=== PATIENT | female | born 1945 | race African-American/Black ===

== ENCOUNTER → 2016-08-17 | Day surgery (SDC) | payer MEDICARE, MEDICAID ==
[~2016-08-17] VITALS: Ht 170.2 cm; Wt 81.6 kg
[~2016-08-17] MED LIST: ACETAMINOPHEN 325MG TABLET PO PRN; AMLO5TAB88 PO; AZIL80TA PO; DULA0.75 SQ; EZET10TA PO; FENTANYL CITRATE/PF 50MCG/ML 2ML VIAL ONE; HEPARIN SODIUM 1,000 UNIT/1ML VIAL IV ONE; IOHEXOL-300 100 ML BOTTLE ONE; LIDOCAINE HCL 1% 20ML VIAL (Pyxis) INJ ONE; MIDAZOLAM HCL 2 MG/2 ML VIAL ONE; NICARDIPINE 100MCG/ML 10ML VIAL (CATH LAB) IV ONE; NITROGLYCERIN 50MCG/ML 10ML VIAL (CATH LAB) IV ONE; OMEP40CA34 PO; RANO500T3 PO; ROSU20TA28 PO
[2016-08-17 13:38] VITALS: BP 106/41
== END | disposition home or self-care (01) ==
LOC: CCL 08:23 → 3WST 08:24 → UNDOADMOB 08:24 → INTOOBSV 08:24 → 3WST 17:40 → L&D 17:40 → ORIP 18:00 → L&D 18:00 → ORIP 18:03
PROVIDERS: ATTEND Specialist
DX: I25.10 Atherosclerotic heart disease of native coronary artery without angina pectoris (principal)
CPT/HCPCS: 82962; 93458; C1769; C1893; J1644; J2250; J3010; J3490; Q9967

== ENCOUNTER 2022-06-29 10:42 | Inpatient (IN) | payer MEDICARE, MEDICAID ==
[~2022-06-29] VITALS: Ht 170.2 cm; Wt 70.3 kg
[~2022-06-29 10:42] MED LIST changes: -ACETAMINOPHEN 325MG TABLET PO PRN; -EZET10TA PO; +EZET10TA13 PO; -FENTANYL CITRATE/PF 50MCG/ML 2ML VIAL ONE; -HEPARIN SODIUM 1,000 UNIT/1ML VIAL IV ONE; -IOHEXOL-300 100 ML BOTTLE ONE; -LIDOCAINE HCL 1% 20ML VIAL (Pyxis) INJ ONE; -MIDAZOLAM HCL 2 MG/2 ML VIAL ONE; -NICARDIPINE 100MCG/ML 10ML VIAL (CATH LAB) IV ONE; -NITROGLYCERIN 50MCG/ML 10ML VIAL (CATH LAB) IV ONE; +OMEP40CA20 PO; -OMEP40CA34 PO; -ROSU20TA28 PO; +ROSU20TA29 PO
[2022-06-29] MEDS ORDERED: NITROGLYCERIN 0.4MG TABLET SL SL PRN (11:30)
[2022-06-29] MEDS ORDERED: FUROSEMIDE 40MG/4ML VIAL IV ONE (11:30)
[2022-06-29 11:43] LABS: BASOPHILS % 0.4 % (0.0-2.0); EOSINOPHILS % 0.6 % (0.0-5.0); HEMATOCRIT. 34.5 % (36.0-48.0); LYMPHOCYTES % 25.3 % (20.0-50.0); MEAN CORPUSCULAR HEMOGLOBIN 23.3 pg (28.0-32.0); MEAN CORPUSCULAR VOLUME 73.3 fL (81.0-99.0); MEAN PLATELET VOLUME 8.8 fl (7.4-10.4); MONOCYTES % 7.5 % (2.0-8.0); NEUTROPHILS % 66.2 % (40.0-76.0); PLATELET 218 x1000/uL (130-400); RED BLOOD CELL COUNT 4.71 mill/uL (4.2-5.4); RED CELL DISTRIBUTION WIDTH 14.6 % (11.6-14.6)
[2022-06-29 11:53] LABS: CHLORIDE 109 mEq/L (98-107)
[2022-06-29] MEDS ORDERED: POTASSIUM CHLORIDE 20MEQ TABLET SR PO SCH (13:30)
[2022-06-29 14:22] LABS: INR 1.2; PROTHROMBIN TIME 12.7 sec (9.6-11.0)
[2022-06-29] MEDS ORDERED: MAGNESIUM/ALUMINUM HYDROXIDE/SIMETHICONE 30ML UDC PO PRN (15:15)
[2022-06-29] MEDS ORDERED: HYDROCODONE/ACETAMINOPHEN 5/325MG TABLET PO PRN (15:15)
[2022-06-29] MEDS ORDERED: IPRATROPIUM/ALBUTEROL 0.5-3(2.5)MG/3ML NEB NEB PRN (15:15)
[2022-06-29] MEDS ORDERED: DOCUSATE SODIUM 100MG CAPSULE PO PRN (15:15)
[2022-06-29] MEDS ORDERED: ACETAMINOPHEN 325MG TABLET PO PRN ×2 (15:15)
[2022-06-29] MEDS ORDERED: GUAIFENESIN 200MG/10ML SUGAR FREE UDC PO PRN (15:15)
[2022-06-29] MEDS ORDERED: CLONIDINE 0.1MG TABLET PO PRN (15:15)
[2022-06-29] MEDS ORDERED: NALOXONE HCL 0.4MG/ML VIAL IV PRN (15:30)
[2022-06-29 17:00] VITALS: BP 123/78
[2022-06-29] MEDS ORDERED: ALBUTEROL (0.083%) 2.5MG/3ML NEB HHN PRN (17:30)
[2022-06-29] MEDS ORDERED: IPRATROPIUM BROMIDE (0.02%) 0.5MG/2.5ML NEB HHN PRN (17:30)
[2022-06-29] MEDS: POTASSIUM CHLORIDE 20MEQ TABLET SR PO SCH (17:49)
[2022-06-29] MEDS: FUROSEMIDE 40MG/4ML VIAL IVP SCH (17:49)
[2022-06-29] MEDS ORDERED: IPRATROPIUM/ALBUTEROL 0.5-3(2.5)MG/3ML NEB HHN SCH (18:00)
[2022-06-29 18:07] VITALS: BP 123/78
[2022-06-29 20:00] VITALS: BP 108/68
[2022-06-29] MEDS ORDERED: AMLODIPINE 2.5MG TABLET PO SCH (21:00)
[2022-06-30] VITALS: BP 104/63
[2022-06-30 04:00] VITALS: BP 108/66
[2022-06-30 06:49] LABS: BASOPHILS % 0.3 % (0.0-2.0); HEMATOCRIT. 34.2 % (36.0-48.0); MEAN CORPUSCULAR HEMOGLOBIN 23.4 pg (28.0-32.0); MEAN CORPUSCULAR VOLUME 72.8 fL (81.0-99.0); MEAN PLATELET VOLUME 9.1 fl (7.4-10.4); MONOCYTES % 7.9 % (2.0-8.0); NEUTROPHILS % 62.8 % (40.0-76.0); PLATELET 198 x1000/uL (130-400); RED CELL DISTRIBUTION WIDTH 14.2 % (11.6-14.6)
[2022-06-30 06:55] LABS: CHLORIDE 111 mEq/L (98-107)
[2022-06-30] MEDS: OMEPRAZOLE 20MG CAPSULE EXTENDED RELEASE PO SCH (07:26)
[2022-06-30 08:00] VITALS: BP 110/78
[2022-06-30 12:30] VITALS: BP 116/74
[2022-06-30] MEDS: AMLODIPINE 2.5MG TABLET PO SCH (13:03)
[2022-06-30] MEDS: SPIRONOLACTONE 25MG TABLET PO SCH (13:03)
[2022-06-30] MEDS: POTASSIUM CHLORIDE 20MEQ TABLET SR PO SCH ×2 (13:03→16:54)
[2022-06-30] MEDS: FUROSEMIDE 40MG/4ML VIAL IVP SCH ×2 (13:04→16:53)
[2022-06-30] MEDS: ALLOPURINOL 100 MG TABLET PO SCH (13:04)
[2022-06-30 16:00] VITALS: BP 100/70
[2022-06-30] MEDS ORDERED: LOPERAMIDE HCL 2MG CAPSULE PO PRN (19:45)
[2022-06-30 20:00] VITALS: BP 96/55
[2022-07-01] VITALS: BP 102/68
[2022-07-01 04:00] VITALS: BP 101/63
[2022-07-01 06:08] LABS: BASOPHILS % 0.5 % (0.0-2.0); EOSINOPHILS % 1.1 % (0.0-5.0); HEMOGLOBIN. 11.9 g/dL (12.0-16.0); LYMPHOCYTES % 31.2 % (20.0-50.0); MEAN CORPUSCULAR HEMOGLOBIN 23.3 pg (28.0-32.0); MEAN CORPUSCULAR VOLUME 72.2 fL (81.0-99.0); MEAN PLATELET VOLUME 9.5 fl (7.4-10.4); MONOCYTES % 7.9 % (2.0-8.0); NEUTROPHILS % 59.3 % (40.0-76.0); PLATELET 214 x1000/uL (130-400); RED BLOOD CELL COUNT 5.13 mill/uL (4.2-5.4); RED CELL DISTRIBUTION WIDTH 14.5 % (11.6-14.6)
[2022-07-01] MEDS: OMEPRAZOLE 20MG CAPSULE EXTENDED RELEASE PO SCH (06:51)
[2022-07-01 08:00] VITALS: BP 95/62
[2022-07-01] MEDS: POTASSIUM CHLORIDE 20MEQ TABLET SR PO SCH ×2 (08:26→16:17)
[2022-07-01] MEDS: AMLODIPINE 2.5MG TABLET PO SCH (08:26)
[2022-07-01] MEDS: FUROSEMIDE 40MG/4ML VIAL IVP SCH ×2 (08:26→16:17)
[2022-07-01] MEDS: ALLOPURINOL 100 MG TABLET PO SCH (08:26)
[2022-07-01 12:00] VITALS: BP 102/61
[2022-07-01] MEDS: SPIRONOLACTONE 25MG TABLET PO SCH (13:59)
[2022-07-01 16:00] VITALS: BP 96/60
[2022-07-01] MEDS: SILDENAFIL CITRATE 20MG TABLET PO SCH ×2 (16:17→22:00)
[2022-07-01] MEDS ORDERED: LOPERAMIDE HCL 2MG CAPSULE PO PRN (17:00)
[2022-07-01] MEDS: CHOLESTYRAMINE/SUCROSE 4G POWDER PACKET PO SCH (18:10)
[2022-07-01 20:51] VITALS: BP 92/50
[2022-07-02] VITALS (7 sets, daily range): BP systolic 96–107; BP diastolic 53–60
[2022-07-02] MEDS: IPRATROPIUM BROMIDE (0.02%) 0.5MG/2.5ML NEB HHN SCH ×3 (01:43→13:21)
[2022-07-02] MEDS: ALBUTEROL (0.083%) 2.5MG/3ML NEB HHN SCH ×3 (01:43→13:21)
[2022-07-02 06:46] LABS: BASOPHILS % 0.5 % (0.0-2.0); EOSINOPHILS % 1.4 % (0.0-5.0); HEMOGLOBIN. 12.8 g/dL (12.0-16.0); LYMPHOCYTES % 35.6 % (20.0-50.0); MEAN CORPUSCULAR HEMOGLOBIN 23.1 pg (28.0-32.0); MEAN CORPUSCULAR VOLUME 72.3 fL (81.0-99.0); MEAN PLATELET VOLUME 9.5 fl (7.4-10.4); NEUTROPHILS % 54.5 % (40.0-76.0); PLATELET 200 x1000/uL (130-400); RED BLOOD CELL COUNT 5.54 mill/uL (4.2-5.4); RED CELL DISTRIBUTION WIDTH 14.5 % (11.6-14.6)
[2022-07-02] MEDS: SILDENAFIL CITRATE 20MG TABLET PO SCH ×2 (06:58→13:18)
[2022-07-02] MEDS: OMEPRAZOLE 20MG CAPSULE EXTENDED RELEASE PO SCH (06:58)
[2022-07-02 07:12] LABS: PHOSPHORUS 3.4 mg/dL (2.5-4.9)
[2022-07-02] MEDS: POTASSIUM CHLORIDE 20MEQ TABLET SR PO SCH ×2 (08:32→16:17)
[2022-07-02] MEDS: FUROSEMIDE 40MG/4ML VIAL IVP SCH ×2 (08:32→16:17)
[2022-07-02] MEDS: CHOLESTYRAMINE/SUCROSE 4G POWDER PACKET PO SCH ×2 (08:32→17:10)
[2022-07-02] MEDS: SPIRONOLACTONE 25MG TABLET PO SCH (08:32)
[2022-07-02] MEDS: AMLODIPINE 2.5MG TABLET PO SCH (08:33)
[2022-07-02] MEDS: ALLOPURINOL 100 MG TABLET PO SCH (13:18)
[2022-07-02] MEDS ORDERED: AMLO2.5T45 PO ×2 (16:52→17:37)
[2022-07-02] MEDS ORDERED: SPIR25TA PO ×2 (16:52→17:37)
[2022-07-02] MEDS ORDERED: ALLO100T PO ×2 (16:52→17:37)
[2022-07-02] MEDS ORDERED: REV20 PO ×2 (16:52→17:37)
[2022-07-02] MEDS ORDERED: ONDANSETRON HCL 4MG TABLET PO PRN (17:30)
[2022-07-02] MEDS ORDERED: ONDANSETRON HCL 4MG/2ML INJ IV PRN (17:45)
[2022-07-02 17:53] LABS: BG BASE EXCESS -0.6 mmol/L (-2.0-2.0); BG DEOXYHEMOGLOBIN 2.9 % (0.0-5.0); BG FRACTION INSPIRED OXYGEN 21; BG HCO3 ACT 22.4 mmol/L (22.0-26.0); BG METHEMOGLOBIN 0.3 % (0.0-1.5); BG OXYGEN SATURATION 97.1 % (92.0-98.5); BG OXYHEMOGLOBIN 96.8 % (94.0-97.0); BG PCO2 31.5 mmHg (35.0-45.0); BG PH 7.469 (7.350-7.450); BG PO2 93.7 mmHg (75.0-100.0); BG SAMPLE SITE RIGHT BRACHIAL; BG TOTAL HEMOGLOBIN 12.3 g/dL (12.0-18.0); BG VENT MODE ROOM AIR
== END 2022-07-02 21:04 | disposition home health service (06) | DRG 291 ==
LOC: ER 10:42 → MICUSO 14:19 → EDBEDREQTM 14:31 → EDBEDREQ 14:31 → ENRESERV 15:43 → 7WST 16:50
PROVIDERS: ADMIT Internal Medicine; ATTEND Internal Medicine
PROC: 0W993ZZ Drainage of Right Pleural Cavity, Percutaneous Approach (ICD-10-PCS; principal; 2022-06-30)
DX: I11.0 Hypertensive heart disease with heart failure (principal); I50.43 Acute on chronic combined systolic (congestive) and diastolic (congestive) heart failure; J96.01 Acute respiratory failure with hypoxia; J91.8 Pleural effusion in other conditions classified elsewhere; E87.6 Hypokalemia; G47.33 Obstructive sleep apnea (adult) (pediatric); I25.10 Atherosclerotic heart disease of native coronary artery without angina pectoris; I27.20 Pulmonary hypertension, unspecified; E11.9 Type 2 diabetes mellitus without complications; J44.9 Chronic obstructive pulmonary disease, unspecified; K21.9 Gastro-esophageal reflux disease without esophagitis; E78.00 Pure hypercholesterolemia, unspecified; R21 Rash and other nonspecific skin eruption; E78.5 Hyperlipidemia, unspecified; R13.10 Dysphagia, unspecified; Z20.822 Contact with and (suspected) exposure to COVID-19; I42.9 Cardiomyopathy, unspecified; K43.9 Ventral hernia without obstruction or gangrene; Z96.653 Presence of artificial knee joint, bilateral; Z85.528 Personal history of other malignant neoplasm of kidney; I25.2 Old myocardial infarction; Z87.891 Personal history of nicotine dependence; Z90.49 Acquired absence of other specified parts of digestive tract; Z79.899 Other long term (current) drug therapy
CPT/HCPCS: 32555; 36415; 36600; 71045; 72141; 76604; 80048; 80053; 82375; 82805; 83615; 83735; 83880; 84100; 84484; 85025; 85379; 87426; 87804; 88108; 92610; 93005; 93306; 93970; 94618; 97162; 99291; J1940; J2405; Q0162

== ENCOUNTER 2023-06-25 17:27 | Inpatient (IN) | payer MEDICARE, MEDICAID ==
[~2023-06-25] VITALS: Ht 170.2 cm; Wt 73.5 kg
[~2023-06-25 17:27] MED LIST changes: +ALLO100T PO; +AMLO2.5T45 PO; -AMLO5TAB88 PO; +ASCO500T20 PO; +BUDE3CAP8 PO; +ERGO1250 PO; -EZET10TA13 PO; +EZET10TA81 PO; +LATA2.5D14 EACHEYE; +MONT-39 PO; +REV20 PO
[2023-06-25 20:21] LABS: BASOPHILS % 0.5 % (0.0-2.0); DIFFERENTIAL COMMENT 0; EOSINOPHILS % 0.8 % (0.0-5.0); HEMATOCRIT. 33.9 % (36.0-48.0); HEMOGLOBIN. 10.7 g/dL (12.0-16.0); LYMPHOCYTES % 18.7 % (20.0-50.0); MEAN CORPUSCULAR HEMOGLOBIN 24.8 pg (28.0-32.0); MEAN CORPUSCULAR HGB CONC 31.6 g/dL (31.0-37.0); MEAN CORPUSCULAR VOLUME 78.3 fL (81.0-99.0); MEAN PLATELET VOLUME 8.7 fl (7.4-10.4); MONOCYTES % 7.5 % (2.0-8.0); NEUTROPHILS % 72.5 % (40.0-76.0); PLATELET 200 x1000/uL (130-400); RED BLOOD CELL COUNT 4.33 mill/uL (4.2-5.4); RED CELL DISTRIBUTION WIDTH 13.9 % (11.6-14.6); WHITE BLOOD COUNT 7.8 x1000/uL (4.5-11.0)
[2023-06-25 20:29] LABS: INR 1.2
[2023-06-25 20:38] LABS: ALANINE AMINOTRANSFERASE 159 IU/L (10-49); ALBUMIN 4.6 g/dL (3.2-4.8); ASPARTATE AMINOTRANSFERASE 68 IU/L (<34); BILIRUBIN TOTAL 0.8 mg/dL (0.1-1.0); CALCIUM 9.5 mg/dL (8.7-10.4); CARBON DIOXIDE 24 mEq/L (21-32); CHLORIDE 100 mEq/L (98-107); CREATININE 1.8 mg/dL (0.6-1.0); GLUCOSE 108 mg/dL (70-105); POTASSIUM 3.9 mEq/L (3.5-5.1); PROTEIN TOTAL 7.5 g/dL (6.0-8.3); SODIUM 134 mEq/L (136-145); UREA NITROGEN BLOOD 56 mg/dL (9-23)
[2023-06-25 20:45] LABS: TROPONIN I HIGH SENSITIVITY 119 ng/L (3.0-34)
[2023-06-25] MEDS: FUROSEMIDE 40MG/4ML VIAL IVP ONE (22:34)
[2023-06-26 04:00] VITALS: BP 98/66; PULSE 83; RESP 19; TEMP 98.1
[2023-06-26 04:09] VITALS: BP 98/66; PULSE 83; RESP 20; TEMP 98.1
[2023-06-26] MEDS: SODIUM CHLORIDE 0.9% INJ 3ML FLUSH IVF SCH (06:00)
[2023-06-26 08:00] VITALS: BP 118/67; PULSE 54; RESP 18; TEMP 98.1
[2023-06-26] MEDS: ALLOPURINOL 100 MG TABLET PO SCH (09:24)
[2023-06-26] MEDS: MONTELUKAST SODIUM 10MG TABLET PO SCH (09:24)
[2023-06-26] MEDS: AMLODIPINE 2.5MG TABLET PO SCH (09:24)
[2023-06-26] MEDS: ERGOCALCIFEROL 50000UNITS CAPSULE PO SCH (09:24)
[2023-06-26] MEDS: ENOXAPARIN 30MG/0.3ML SYR SUBCUT SCH (09:24)
[2023-06-26] MEDS: ASCORBIC ACID 500 MG TABLET PO SCH (09:24)
[2023-06-26] MEDS: FUROSEMIDE 40MG/4ML VIAL IVP SCH (09:25)
[2023-06-26] MEDS: EZETIMIBE 10MG TABLET PO SCH (09:25)
[2023-06-26] MEDS ORDERED: DIGOXIN 500MCG/2ML AMP IV PRN (09:45)
[2023-06-26] MEDS: DIGOXIN 500MCG/2ML AMP IV NR (09:58)
[2023-06-26] MEDS: CARVEDILOL 3.125 MG TABLET PO NR (09:59)
[2023-06-26] MEDS ORDERED: RANOLAZINE 500 MG TAB.SR.12H PO SCH (10:00)
[2023-06-26] MEDS: ENOXAPARIN 30MG/0.3ML SYR SUBCUT NR (10:06)
[2023-06-26] MEDS: ENOXAPARIN 60MG/0.6ML SYR SUBCUT SCH (10:13)
[2023-06-26 11:20] LABS: TROPONIN I HIGH SENSITIVITY 127 ng/L (3.0-34)
[2023-06-26 12:00] VITALS: BP 141/63; PULSE 74; RESP 13; TEMP 97.3
[2023-06-26 12:12] LABS: HEPATITIS B SURFACE ANTIGEN NEGATIVE (Negative); HEPATITIS C AB NON REACTIVE (Neg) (Negative)
[2023-06-26] MEDS ORDERED: SILDENAFIL CITRATE 20MG TABLET PO SCH (14:00)
[2023-06-26 16:00] VITALS: BP 98/52; PULSE 104; RESP 20; TEMP 97.1
[2023-06-26 16:40] LABS: TROPONIN I HIGH SENSITIVITY 123 ng/L (3.0-34)
[2023-06-26] MEDS: DIGOXIN 125MCG TABLET PO SCH (17:51)
[2023-06-26 20:00] VITALS: BP 111/67; PULSE 50; RESP 20; TEMP 97.5
[2023-06-26] MEDS: LATANOPROST 0.005% OPHTH DROPS 2.5ML EACHEYE SCH (20:31)
[2023-06-26] MEDS: CARVEDILOL 3.125 MG TABLET PO SCH (20:44)
[2023-06-27] VITALS (8 sets, daily range): BP systolic 91–109; BP diastolic 39–63; PULSE 70–107; RESP 17–20; TEMP 97.2–98.9
[2023-06-27 07:33] LABS: BASOPHILS % 0.6 % (0.0-2.0); DIFFERENTIAL COMMENT 0; EOSINOPHILS % 1.7 % (0.0-5.0); HEMATOCRIT. 32.6 % (36.0-48.0); HEMOGLOBIN. 10.3 g/dL (12.0-16.0); LYMPHOCYTES % 20.5 % (20.0-50.0); MEAN CORPUSCULAR HEMOGLOBIN 25.3 pg (28.0-32.0); MEAN CORPUSCULAR HGB CONC 31.7 g/dL (31.0-37.0); MEAN CORPUSCULAR VOLUME 79.6 fL (81.0-99.0); MEAN PLATELET VOLUME 8.8 fl (7.4-10.4); NEUTROPHILS % 68.2 % (40.0-76.0); PLATELET 215 x1000/uL (130-400); RED BLOOD CELL COUNT 4.09 mill/uL (4.2-5.4); RED CELL DISTRIBUTION WIDTH 13.9 % (11.6-14.6); WHITE BLOOD COUNT 5.9 x1000/uL (4.5-11.0)
[2023-06-27 07:56] LABS: CALCIUM 8.7 mg/dL (8.7-10.4); CARBON DIOXIDE 25 mEq/L (21-32); CHLORIDE 105 mEq/L (98-107); CHOLESTEROL 107 mg/dL (<200); CREATININE 1.2 mg/dL (0.6-1.0); GLUCOSE 105 mg/dL (70-105); HDL CHOLESTEROL 36 mg/dL (>65); LDL CHOLESTEROL 63 mg/dL (5-100); POTASSIUM 4.1 mEq/L (3.5-5.1); SODIUM 139 mEq/L (136-145); TRIGLYCERIDE 77 mg/dL (0-150); UREA NITROGEN BLOOD 31 mg/dL (9-23)
[2023-06-27 08:13] LABS: TROPONIN I HIGH SENSITIVITY 92 ng/L (3.0-34)
[2023-06-27] MEDS ORDERED: MAGNESIUM 2 G PREMIX 50 ML IV ONE (09:45)
[2023-06-27] MEDS: MAGNESIUM OXIDE 400MG TABLET PO SCH (11:21)
[2023-06-27] MEDS: MAGNESIUM 4 G PREMIX 100 ML IV SCH (11:22)
[2023-06-28] VITALS (8 sets, daily range): BP systolic 90–123; BP diastolic 41–75; PULSE 57–111; RESP 18–20; TEMP 96.4–98.7; O2SAT 99–100
[2023-06-28 10:19] LABS: BASOPHILS % 0.4 % (0.0-2.0); DIFFERENTIAL COMMENT 0; EOSINOPHILS % 1.3 % (0.0-5.0); HEMOGLOBIN. 11.1 g/dL (12.0-16.0); LYMPHOCYTES % 18.3 % (20.0-50.0); MEAN CORPUSCULAR HEMOGLOBIN 24.8 pg (28.0-32.0); MEAN CORPUSCULAR HGB CONC 31.7 g/dL (31.0-37.0); MEAN CORPUSCULAR VOLUME 78.4 fL (81.0-99.0); MEAN PLATELET VOLUME 8.4 fl (7.4-10.4); MONOCYTES % 7.7 % (2.0-8.0); NEUTROPHILS % 72.3 % (40.0-76.0); PLATELET 265 x1000/uL (130-400); RED BLOOD CELL COUNT 4.47 mill/uL (4.2-5.4); RED CELL DISTRIBUTION WIDTH 14.4 % (11.6-14.6); WHITE BLOOD COUNT 6.2 x1000/uL (4.5-11.0)
[2023-06-28 10:27] LABS: CALCIUM 9.2 mg/dL (8.7-10.4); CARBON DIOXIDE 28 mEq/L (21-32); CHLORIDE 106 mEq/L (98-107); GLUCOSE 142 mg/dL (70-105); POTASSIUM 3.7 mEq/L (3.5-5.1); SODIUM 139 mEq/L (136-145); UREA NITROGEN BLOOD 25 mg/dL (9-23)
[2023-06-28] MEDS: DIGOXIN 125MCG TABLET PO NR (13:43)
[2023-06-28] MEDS: CARVEDILOL 3.125 MG TABLET PO ONE (19:00)
[2023-06-29] VITALS: BP 90/49; PULSE 110; RESP 18; TEMP 97.3
[2023-06-29 04:00] VITALS: BP 103/70; PULSE 114; RESP 19; TEMP 97.1
[2023-06-29 08:00] VITALS: BP 115/49; PULSE 88; RESP 20; TEMP 97.7
[2023-06-29 10:20] VITALS: PULSE 84; RESP 18
[2023-06-29 12:00] VITALS: BP 92/55; PULSE 73; RESP 18; TEMP 97.7
[2023-06-29 12:30] VITALS: BP 102/56; PULSE 94; RESP 18
== END 2023-06-29 15:00 | disposition home or self-care (01) | DRG 291 ==
LOC: ER 17:27 → 7EST 21:30
PROVIDERS: ADMIT Internal Medicine; ATTEND Internal Medicine
DX: I13.0 Hypertensive heart and chronic kidney disease with heart failure and stage 1 through stage 4 chronic kidney disease, or unspecified chronic kidney disease (principal); I50.23 Acute on chronic systolic (congestive) heart failure; N17.0 Acute kidney failure with tubular necrosis; I25.10 Atherosclerotic heart disease of native coronary artery without angina pectoris; E11.22 Type 2 diabetes mellitus with diabetic chronic kidney disease; I27.21 Secondary pulmonary arterial hypertension; I42.9 Cardiomyopathy, unspecified; I48.91 Unspecified atrial fibrillation; I49.3 Ventricular premature depolarization; E78.00 Pure hypercholesterolemia, unspecified; J44.89 Other specified chronic obstructive pulmonary disease; N18.9 Chronic kidney disease, unspecified; D63.8 Anemia in other chronic diseases classified elsewhere; E83.42 Hypomagnesemia; I34.0 Nonrheumatic mitral (valve) insufficiency; R26.9 Unspecified abnormalities of gait and mobility; R74.01 Elevation of levels of liver transaminase levels; Z79.899 Other long term (current) drug therapy; Z96.659 Presence of unspecified artificial knee joint; Z90.5 Acquired absence of kidney; Z85.528 Personal history of other malignant neoplasm of kidney; Z79.4 Long term (current) use of insulin
CPT/HCPCS: 36415; 71045; 80048; 80053; 80061; 83735; 83880; 84484; 85025; 86705; 87340; 93005; 93970; 97162; 97166; 97530; 97535; 99291; J1160; J1650; J1940; J3475